=== PATIENT | female | born 1970 | race Caucasian/White ===

== ENCOUNTER 2024-02-02 18:07 | Emergency (ER) | payer SELFPAY ==
[2024-02-02] MEDS ORDERED: BABY ASPIRIN 81 MG CHEW ONE (18:22)
[2024-02-02 18:23] VITALS: TEMP 97.4
[2024-02-02] MEDS: BABY ASPIRIN 81 MG CHEW PO ONE (18:23)
[2024-02-02 18:26] VITALS: O2SAT 96
[2024-02-02 18:42] LABS: Absolute Neutrophil Ct (ANC) 3.84 x10^3/uL (1.56-6.13); BASOPHIL % 0.6 % (0.1-1.2); Basophil (Absolute #) 0.04 x10^3/uL (0.01-0.08); Eosinophil % 5.3 % (0.7-5.8); Eosinophil (Absolute #) 0.33 x10^3/uL (0.04-0.36); Hematocrit 38.8 % (34.1-44.9); Hemoglobin 12.7 g/dL (11.2-15.7); Lymphocyte (Absolute #) 1.58 x10^3/uL (1.18-3.74); Lymphocytes % 25.4 % (19.3-51.7); Mean Cell Volume 95.1 fL (79.4-94.8); Mean Corpuscular Hemoglobin 31.1 pg (25.6-32.2); Mean Corpuscular Hgb Concent. 32.7 g/dL (32.2-35.5); Mean Platelet Volume 10.2 fL (9.4-12.3); Monocyte (Absolute #) 0.43 x10^3/uL (0.24-0.86); Monocytes % 6.9 % (4.7-12.5); Neutrophil % 61.8 % (34.0-71.1); Platelet Count 241 x10^3/uL (182-369); Red Blood Count 4.08 x10^6/uL (3.93-5.22); Red Cell Distribution Width 12.4 % (11.7-14.4); White Blood Count 6.2 x10^3/uL (3.98-10.04)
[2024-02-02] MEDS: GI COCKTAIL 45 ML (Maalox/Lidocaine) PO ONE (18:45)
--- NOTE | 2024-02-02 18:57 | ERPHSYRPT ---
- History of Present Illness Time Seen by Provider: 02/02/24 18:19 Historian: patient Exam Limitations: no limitations Patient Subjective Stated Complaint: C/O chest pain for a few weeks that has become worse and more consistent today. Triage Nursing Assessment: Patient ambulated back to ER wearing a mask without difficulties. She is alert and oriented. Anxious. No SOB. JOHNS WNL. No cough noted during assessment but reports an occassional, non-productive cough to staff. Skin tone normal. Physician History: 54-year-old fairly healthy female presented in the ER with complaint of retrosternal chest pain off and on for the last few weeks with progressive worsening lately. Patient reports dyspnea on exertion. Reports sharp stabbing pain, without palpitations or difficulty breathing. Denies any history of coronary artery disease. Patient also reports having some congestion and earaches. She has outpatient COVID test done which is negative. Aspirin Treatment Today: unknown Allergies/Adverse Reactions: bupivacaine [From Marcaine] Allergy (Verified 02/02/24 18:12) cephalexin [From Keflex] Allergy (Verified 02/02/24 18:12) codeine Allergy (Verified 02/02/24 18:12) dexamethasone Allergy (Verified 02/02/24 18:12) Penicillins Allergy (Verified 02/02/24 18:12) Rash Sulfa (Sulfonamide Antibiotics) Allergy (Verified 02/02/24 18:12) Hives Hx Tetanus, Diphtheria Vaccination/Date Given: Yes Hx Influenza Vaccination/Date Given: No Immunizations Up to Date: Yes Travel Risk - International Travel Have you traveled outside of the country in past 3 weeks: No - Emerging Infectious Disease Are you exhibiting symptoms associated with any current EIDs: Yes Symptoms: Cough: New Onset, Other (Please Comment) Comment: chest pain - Review of Systems Constitutional: No Symptoms Ears, Nose, & Throat: No Symptoms Respiratory: No Symptoms Cardiac: Chest Pain Abdominal/Gastrointestinal: No Symptoms Genitourinary Symptoms: No Symptoms Musculoskeletal: No Symptoms Skin: No Symptoms Neurological: No Symptoms Psychological: No Symptoms Endocrine: No Symptoms Hematologic/Lymphatic: No Symptoms - Past Medical History Pertinent Past Medical History: Yes Female Reproductive Disorders: Endometriosis - Past Surgical History Past Surgical History: Yes Other Surgical History: Cyst removed and endometreosis - Social History Smoking Status: Never smoker Exposure to second hand smoke: No Drug Use: none - Social Determinants of Health Will the patient participate in the screening: Yes Do you worry about a steady place to live?: No Do you have any problems with any of the following?: No known problems In the past 12 months,have you had to go without utilities?: No Transportation Issues: No Has anyone in your support network made you feel unsafe?: No Have you or anyone in your house had to go without enough: No - Nursing Vital Signs Nursing Vital Signs: Initial Vital Signs Temperature 97.4 F 02/02/24 18:14 Pulse Rate 74 02/02/24 18:14 Respiratory Rate 20 02/02/24 18:14 Blood Pressure 109/76 02/02/24 18:14 O2 Sat by Pulse Oximetry 98 02/02/24 18:14 Pain Scale Pain Intensity 9 - Physical Exam General Appearance: no apparent distress, alert Eye Exam: PERRL/EOMI Ears, Nose, Throat Exam: normal ENT inspection Neck Exam: normal inspection, non-tender, supple, full range of motion Respiratory Exam: normal breath sounds, lungs clear Cardiovascular Exam: regular rate/rhythm, normal heart sounds Gastrointestinal/Abdomen Exam: soft, normal bowel sounds, No tenderness Back Exam: normal inspection, normal range of motion Neurologic Exam: alert, oriented x 3, cooperative Skin Exam: normal color SpO2 Interpretation: normal SpO2: 96 O2 Delivery: Room Air - Course EKG Interpreted by Me: RATE (63), Sinus Rhythm, NORMAL AXIS, NORMAL INTERVALS, NORMAL QRS Ordered Tests: Medication Summary Discontinued Medications Generic Name Dose Route Start Last Admin Trade Name Yuan PRN Reason Stop Dose Admin Aspirin 324 mg 02/02/24 18:19 02/02/24 18:23 Aspirin 81 Mg Tab.Chew PO 02/02/24 18:20 324 mg STAT ONE Administration Aspirin Confirm 02/02/24 18:22 Aspirin 81 Mg Tab.Chew Administered 02/02/24 18:23 Dose 324 mg .ROUTE .STK-MED ONE Azithromycin 500 mg 02/02/24 19:32 02/02/24 19:43 Azithromycin 250 Mg Tablet PO 02/02/24 19:33 500 mg STAT ONE Administration Azithromycin Confirm 02/02/24 19:42 Azithromycin 250 Mg Tablet Administered 02/02/24 19:43 Dose 500 mg .ROUTE .STK-MED ONE Magnesium Hydroxide 45 ml 02/02/24 18:26 02/02/24 18:45 Mag Hydrx/Alum Hyd/Simeth/Lido 45 Ml Bottle PO 02/02/24 18:27 Not Given STAT ONE Lab/Rad Data: Laboratory Result Diagrams 02/02/24 18:40 02/02/24 18:40 Laboratory Results 02/02/24 02/02/24 02/02/24 Range/Units 18:40 18:40 18:40 WBC 6.2 (3.98-10.04) x10^3/uL RBC 4.08 (3.93-5.22) x10^6/uL Hgb 12.7 (11.2-15.7) g/dL Hct 38.8 (34.1-44.9) % MCV 95.1 H (79.4-94.8) fL MCH 31.1 (25.6-32.2) pg MCHC 32.7 (32.2-35.5) g/dL RDW 12.4 (11.7-14.4) % Plt Count 241 (182-369) x10^3/uL MPV 10.2 (9.4-12.3) fL Gran % 61.8 (34.0-71.1) % Immature Gran % (Auto) 0.0 L (0.001-0.429) % Nucleat RBC Rel Count 0.0 (0.00-0.2) % Eos # (Auto) 0.33 (0.04-0.36) x10^3/uL Immature Gran # (Auto) 0.00 L (0.001-0.031) x10^3u/L Absolute Lymphs (auto) 1.58 (1.18-3.74) x10^3/uL Absolute Monos (auto) 0.43 (0.24-0.86) x10^3/uL Absolute Nucleated RBC 0.00 (0.00-0.012) x10^3u/L Lymphocytes % 25.4 (19.3-51.7) % Monocytes % 6.9 (4.7-12.5) % Eosinophils % 5.3 (0.7-5.8) % Basophils % 0.6 (0.1-1.2) % Absolute Granulocytes 3.84 (1.56-6.13) x10^3/uL Basophils # 0.04 (0.01-0.08) x10^3/uL Sodium 139 (135-145) mmol/L Potassium 3.9 (3.5-5.1) mmol/L Chloride 107 (98-107) mmol/L Carbon Dioxide 22 (22-30) mmol/L Anion Gap 14.1 (5-15) MEQ/L BUN 16 (7-17) mg/dL Creatinine 0.88 (0.52-1.04) mg/dL Estimated GFR 77.6 ML/MIN Glucose 106 (74-106) mg/dL Calcium 9.3 (8.4-10.2) mg/dL Total Bilirubin 0.40 (0.2-1.3) mg/dL AST 30 (14-36) U/L ALT 24 (0-35) U/L Alkaline Phosphatase 96 (38-126) U/L Troponin I < 0.012 (0.000-0.033) ng/mL NT-Pro-B Natriuret Pep 35.3 (<300) pg/mL Serum Total Protein 7.1 (6.3-8.2) g/dL Albumin 4.1 (3.5-5.0) g/dL - Progress Progress: re-examined Air Movement: good Progress Note: 02/02/24 19:33 54-year-old is evaluated in the ER for substernal chest pain. Patient has burning stinging sensation. The EKG is normal sinus rhythm with no acute ST henrietta vations. She is given aspirin and [place]/recommended GI cocktail but patient declined. Patient chest x-ray is negative for any acute cardiopulmonary findings reviewed by me, official report is pending. Normal white count, fairly unremarkable chemistries and negative troponins. Patient has no history of coronary artery disease and with her symptoms going on for quite some time 1 negative troponin is enough to rule it out. I believe patient has viral bronchitis and because of repeated coughing having some soreness/pain. She also has otitis media and started on azithromycin. Recommended taking Tylenol as needed and outpatient follow-up. Discussed signs symptoms of worsening needing return to ER which she seems understanding. Stable for discharge. Blood Culture(s) Obtained: No Antibiotics given: Yes Counseled pt/family regarding: lab results, diagnosis, need for follow-up, rad results Medical Desision Making - Diagnostic Testing Diagnostic test were ordered, analyzed, and reviewed by me: Yes Radiological Interpretation: Interpreted by me, Reviewed by me - Risk of complications The pt has a mod risk of morbidity or mortality based on: Need for prescription drug management - Departure Departure Disposition: Home Clinical Impression: Otitis media, Bronchitis Condition: Stable Critical Care Time: No Referrals: DOCTOR,NO FAMILY [Primary Care Provider] - Follow up with PCP 1 day Instructions: Angina (DC), Bronchitis, Adult ED, Ear Infection ED Additional Instructions: Take Tylenol as needed. Follow-up with primary care for reevaluation. Return to ER with any worsening Prescriptions: Famotidine 20 mg [Pepcid 20 MG] 20 mg PO BID #14 tablet Azithromycin 250 mg [Zithromax 250 MG TABLET] 250 mg PO DAILY 4 Days #4 tablet
[2024-02-02 19:04] LABS: ALBUMIN 4.1 g/dL (3.5-5.0); ANION GAP 14.1 MEQ/L (5-15); BILIRUBIN,TOTAL 0.4 mg/dL (0.2-1.3); Calcium 9.3 mg/dL (8.4-10.2); Creatinine 1 0.88 mg/dL (0.52-1.04); EST GLOMERULAR FILTRATION RATE 77.6 ML/MIN; NT PRO BNPII 35.3 pg/mL (<300); Potassium 3.9 mmol/L (3.5-5.1); Total Protein 7.1 g/dL (6.3-8.2)
[2024-02-02] MEDS ORDERED: Zithromax 250 MG TABLET ONE (19:42)
[2024-02-02] MEDS: Zithromax 250 MG TABLET PO ONE (19:43)
[2024-02-02 20:30] VITALS: BP 127/85; PULSE 59; RESP 16
--- NOTE | 2024-02-02 21:41 | XRAY ---
Indication: Chest pain. Sickness. Comparison: None Portable chest demonstrates normal heart, lungs, and bony thorax.
== END 2024-02-02 20:30 | disposition home or self-care (01) ==
LOC: ED 18:07
DX: J40 Bronchitis, not specified as acute or chronic (principal); R07.9 Chest pain, unspecified; H66.90 Otitis media, unspecified, unspecified ear
CPT/HCPCS: 36415; 71045; 80053; 83880; 84484; 85025; 93005; 93041; 99284; 99285; A9270-GY